=== PATIENT | male | born 1945 | race African-American/Black ===

== ENCOUNTER 2016-12-21 06:36 | Inpatient (IN) | payer MEDICARE, MEDICAID ==
[~2016-12-21] VITALS: Ht 180.3 cm; Wt 74.8 kg
[2016-12-21] VITALS (12 sets, daily range): BP systolic 123–173; BP diastolic 57–86
[~2016-12-21 06:36] MED LIST: AMLO10TA4 PO; ASPI-1159 PO; ATOR10TA PO; FERR-63 PO; FURO-151 PO; ISOS1TAB PO; METF500T4 PO; METO-298 PO; NITR0.4T3 SL; POTA20TA75 PO
[2016-12-21] MEDS ORDERED: IODIXANOL 320MG/ML 100 ML BOTTLE IV ONE (07:29)
[2016-12-21] MEDS ORDERED: LIDOCAINE HCL 1% 20ML VIAL (Pyxis) INJ ONE (07:30)
[2016-12-21] MEDS ORDERED: CLOP75TA2 PO (07:30)
[2016-12-21 07:45] LABS: HEMATOCRIT 24.3 % (42.0-52.0); HEMOGLOBIN 7.4 g/dL (14.0-18.0); MEAN CORPUSCULAR HEMOGLOBIN 20.3 pg (28.0-32.0); MEAN CORPUSCULAR VOLUME 66.6 fL (80.0-94.0); PLATELET 517 x1000/uL (130-400); RED BLOOD CELL COUNT 3.65 mill/uL (4.7-6.1); RED CELL DISTRIBUTION WIDTH 20.2 % (11.6-14.6)
[2016-12-21] MEDS ORDERED: ESOM40CA PO (07:45)
[2016-12-21] MEDS ORDERED: DOCU-138 PO (07:45)
[2016-12-21] MEDS ORDERED: SUCR1TAB30 PO (07:45)
[2016-12-21 07:54] LABS: PROTHROMBIN TIME 10.7 sec
[2016-12-21] MEDS ORDERED: HEPARIN SODIUM 1,000 UNIT/1ML VIAL IV ONE (08:25)
[2016-12-21] MEDS ORDERED: MIDAZOLAM HCL 2 MG/2 ML VIAL ONE ×2 (08:25→09:10)
[2016-12-21] MEDS ORDERED: FENTANYL CITRATE/PF 50MCG/ML 2ML VIAL ONE (08:26)
[2016-12-21] MEDS ORDERED: IOVERSOL 240MG/ML 100ML BOTTLE IV ONE (08:59)
[2016-12-21] MEDS ORDERED: ASPIRIN 325MG TABLET ONE (09:21)
[2016-12-21] MEDS ORDERED: CLOPIDOGREL 75MG TABLET ONE (09:21)
[2016-12-21] MEDS: AMLODIPINE 10MG TABLET PO SCH (10:30)
[2016-12-21] MEDS: FERROUS SULFATE 325MG TABLET PO SCH ×2 (12:45→17:20)
[2016-12-21] MEDS: SUCRALFATE 1G TABLET PO SCH ×3 (12:45→20:24)
[2016-12-21] MEDS: ISOSORB DINIT/HYDRALAZINE HCL 20/37.5MG TABLET PO SCH ×2 (12:50→17:36)
[2016-12-21] MEDS: DOCUSATE SODIUM 100MG CAPSULE PO SCH (17:00)
[2016-12-21] MEDS: FUROSEMIDE 40MG TABLET PO SCH (17:00)
[2016-12-21] MEDS: METOPROLOL TARTRATE 50MG TABLET PO SCH (20:24)
[2016-12-21] MEDS ORDERED: ATORVASTATIN CALCIUM 10MG TABLET PO SCH (21:00)
[2016-12-22] VITALS (7 sets, daily range): BP systolic 127–147; BP diastolic 66–77
[2016-12-22] MEDS: SUCRALFATE 1G TABLET PO SCH ×2 (06:22→12:38)
[2016-12-22 06:49] LABS: EOSINOPHILS % 2.2 % (0.0-5.0); HEMOGLOBIN. 7.2 g/dL (14.0-18.0); LYMPHOCYTES % 13.3 % (20.0-50.0); MEAN CORPUSCULAR HEMOGLOBIN 20.8 pg (28.0-32.0); MEAN CORPUSCULAR VOLUME 66.8 fL (80.0-94.0); MEAN PLATELET VOLUME 6.7 fl (7.4-10.4); NEUTROPHILS % 74.5 % (40.0-76.0); PLATELET 490 x1000/uL (130-400); RED BLOOD CELL COUNT 3.45 mill/uL (4.7-6.1)
[2016-12-22 07:05] LABS: CHLORIDE 107 mEq/L (98-107)
[2016-12-22 07:15] LABS: CARBON DIOXIDE 23 mEq/L (21-32)
[2016-12-22] MEDS: FERROUS SULFATE 325MG TABLET PO SCH ×2 (08:59→12:39)
[2016-12-22] MEDS: FUROSEMIDE 40MG TABLET PO SCH (09:00)
[2016-12-22] MEDS: AMLODIPINE 10MG TABLET PO SCH (09:00)
[2016-12-22] MEDS ORDERED: POTASSIUM CHLORIDE 20MEQ TABLET SR PO SCH (09:00)
[2016-12-22] MEDS: ISOSORB DINIT/HYDRALAZINE HCL 20/37.5MG TABLET PO SCH (09:00)
[2016-12-22] MEDS: METOPROLOL TARTRATE 50MG TABLET PO SCH (09:00)
[2016-12-22] MEDS ORDERED: CLOPIDOGREL 75MG TABLET PO SCH (09:00)
[2016-12-22] MEDS ORDERED: ASPIRIN 81MG EC TABLET PO SCH (09:00)
[2016-12-22] MEDS: DOCUSATE SODIUM 100MG CAPSULE PO SCH (09:00)
== END 2016-12-22 13:07 | disposition home health service (06) | DRG 254 ==
LOC: CCL 06:36 → 3WST 06:37
PROVIDERS: ADMIT Specialist; ATTEND Specialist
PROC: 047U3ZZ Dilation of Left Peroneal Artery, Percutaneous Approach (ICD-10-PCS; principal; 2016-12-21)
PROC: B41G1ZZ Fluoroscopy of Left Lower Extremity Arteries using Low Osmolar Contrast (ICD-10-PCS; 2016-12-21)
DX: E11.51 Type 2 diabetes mellitus with diabetic peripheral angiopathy without gangrene (principal); D63.8 Anemia in other chronic diseases classified elsewhere; E78.5 Hyperlipidemia, unspecified; I11.9 Hypertensive heart disease without heart failure; I25.10 Atherosclerotic heart disease of native coronary artery without angina pectoris; I70.202 Unspecified atherosclerosis of native arteries of extremities, left leg; J44.9 Chronic obstructive pulmonary disease, unspecified; F17.210 Nicotine dependence, cigarettes, uncomplicated; Z71.6 Tobacco abuse counseling; I25.2 Old myocardial infarction; I73.9 Peripheral vascular disease, unspecified
CPT/HCPCS: 36415; 37228; 75710; 80048; 82962; 85025; 85027; 85347; 85610; C1725; C1760; C1769; C1893; C1894; J1644; J2250; J3010; J3490; Q9967

== ENCOUNTER 2016-12-28 18:30 | Emergency (ER) | payer MEDICARE, MEDICAID ==
[~2016-12-28] VITALS: Ht 180.3 cm; Wt 80.0 kg
[~2016-12-28 18:30] MED LIST changes: +CLOP75TA2 PO; +DOCU-138 PO; +ESOM40CA PO; +IOHEXOL-300 100 ML BOTTLE ONE; +SODIUM CHLORIDE 0.9% 10ML VIAL ONE; +SUCR1TAB30 PO
[2016-12-28] MEDS ORDERED: ONDANSETRON HCL 4MG/2ML VIAL IV STA (22:45)
[2016-12-28] MEDS ORDERED: MORPHINE SULFATE 4 MG/ML CPJ (NOT FOR IM USE) IV STA (22:45)
[2016-12-28] MEDS ORDERED: SODIUM CHLORIDE 0.9% 1,000 ML IV ONE (22:45)
[2016-12-28 23:19] LABS: BASOPHILS % 0.6 % (0.0-2.0); EOSINOPHILS % 2.1 % (0.0-5.0); HEMATOCRIT. 22.9 % (42.0-52.0); HEMOGLOBIN. 7.1 g/dL (14.0-18.0); LYMPHOCYTES % 15.6 % (20.0-50.0); MEAN CORPUSCULAR HEMOGLOBIN 20.9 pg (28.0-32.0); MEAN CORPUSCULAR VOLUME 67.8 fL (80.0-94.0); MEAN PLATELET VOLUME 6.2 fl (7.4-10.4); NEUTROPHILS % 74.7 % (40.0-76.0); PLATELET 625 x1000/uL (130-400); RED BLOOD CELL COUNT 3.37 mill/uL (4.7-6.1); RED CELL DISTRIBUTION WIDTH 21.7 % (11.6-14.6)
[2016-12-28 23:22] LABS: INR 1.1; PARTIAL THROMBOPLASTIN TIME 27.5 sec (24.0-34.0); PROTHROMBIN TIME 11.1 sec
[2016-12-28 23:25] LABS: CARBON DIOXIDE 24 mEq/L (21-32); CHLORIDE 109 mEq/L (98-107)
[2016-12-28 23:26] LABS: PLATELET ESTIMATE MARKEDLY INCREASED
[2016-12-29 00:49] LABS: CLARITY URINE CLEAR (CLEAR); COLOR URINE YELLOW (YELLOW); GLUCOSE URINE NEGATIVE (NEGATIVE); KETONES URINE NEGATIVE (NEGATIVE); LEUKOCYTE ESTERASE URINE 2+ (NEGATIVE); NITRITE URINE NEGATIVE (NEGATIVE); OCCULT BLOOD URINE TRACE (NEGATIVE); PH URINE 6.5 (4.5-8.0); PROTEIN URINE TRACE (NEGATIVE); SPECIFIC GRAVITY URINE 1.024 (1.005-1.030)
[2016-12-29 04:06] VITALS: BP 186/86
== END 2016-12-29 04:08 | disposition home or self-care (01) ==
LOC: ER 19:04
DX: S30.1XXA Contusion of abdominal wall, initial encounter (principal); S20.219A Contusion of unspecified front wall of thorax, initial encounter; E11.9 Type 2 diabetes mellitus without complications; I10 Essential (primary) hypertension; V49.88XA Car occupant (driver) (passenger) injured in other specified transport accidents, initial encounter; Y93.89 Activity, other specified; Y92.89 Other specified places as the place of occurrence of the external cause; Y99.8 Other external cause status
CPT/HCPCS: 36415; 71010; 71260; 74177; 80048; 81001; 82962; 85025; 85610; 85730; 93005; 96361; 96374; 96375; 99291; A4216; J2270; J2405; J7030; Q9967

== ENCOUNTER 2020-08-03 17:08 | Inpatient (IN) | payer MEDICARE, MEDICAID ==
[~2020-08-03] VITALS: Ht 180.3 cm; Wt 75.3 kg
[~2020-08-03 17:08] MED LIST changes: -ASPI-1159 PO; +ASPI-1497 PO; +CLOP-31 PO; -CLOP75TA2 PO; +FAMO40TA7 PO; +FERR-43 PO; -IOHEXOL-300 100 ML BOTTLE ONE; +ISOS30TA91 PO; +METF-414 PO; -METF500T4 PO; -METO-298 PO; +METO-385 PO; -NITR0.4T3 SL; +NITR0.4T49 SL; +POTA20TA12 PO; -POTA20TA75 PO; -SODIUM CHLORIDE 0.9% 10ML VIAL ONE
[2020-08-03] MEDS ORDERED: SODIUM CHLORIDE 0.9% 1,000 ML IV ONE (18:30)
[2020-08-03 18:31] LABS: MEAN CORPUSCULAR HEMOGLOBIN 16.3 pg (28.0-32.0); MEAN CORPUSCULAR VOLUME 60.7 fL (80.0-94.0); MEAN PLATELET VOLUME 6.8 fl (7.4-10.4); PLATELET 535 x1000/uL (130-400); RED BLOOD CELL COUNT 3.05 mill/uL (4.7-6.1); RED CELL DISTRIBUTION WIDTH 24.7 % (11.6-14.6)
[2020-08-03 18:38] LABS: CHLORIDE 110 mEq/L (98-107)
[2020-08-03 18:39] LABS: HEMATOCRIT. 18.5 % (42.0-52.0)
[2020-08-03 18:43] LABS: INR 1.1; PARTIAL THROMBOPLASTIN TIME 27.9 sec (23.4-31.0)
[2020-08-03 19:26] LABS: NUCLEATED RED BLOOD CELLS 1 /100 WBC
[2020-08-03 19:27] LABS: PLATELET ESTIMATE INCREASED
[2020-08-03] MEDS ORDERED: FUROSEMIDE 40MG/4ML VIAL IVP ONE (20:45)
[2020-08-04] VITALS (8 sets, daily range): BP systolic 115–195; BP diastolic 59–96
[2020-08-04] MEDS ORDERED: DEXTROSE 50% WATER 50ML SYRINGE IV PRN (03:30)
[2020-08-04] MEDS: HYDRALAZINE 20MG/ML VIAL IV PRN ×2 (03:58→12:32)
[2020-08-04] MEDS: BLOOD SUGAR DIAGNOSTIC STRIP TEST SCH ×4 (06:45→21:15)
[2020-08-04] MEDS ORDERED: AMLODIPINE 10MG TABLET PO SCH (07:00)
[2020-08-04] MEDS: INSULIN LISPRO 100 UNITS/ML SUBCUT SCH ×4 (07:40→21:14)
[2020-08-04] MEDS ORDERED: FUROSEMIDE 20MG/2ML VIAL IV SCH (09:00)
[2020-08-04 11:06] LABS: HEMATOCRIT. 26.7 % (42.0-52.0); HEMOGLOBIN. 7.9 g/dL (14.0-18.0); MEAN CORPUSCULAR VOLUME 67.4 fL (80.0-94.0); MEAN PLATELET VOLUME 8.4 fl (7.4-10.4); PLATELET 496 x1000/uL (130-400); RED BLOOD CELL COUNT 3.96 mill/uL (4.7-6.1); RED CELL DISTRIBUTION WIDTH 30.4 % (11.6-14.6)
[2020-08-04] MEDS ORDERED: LISI-186 MT (11:13)
[2020-08-04] MEDS ORDERED: METO2.5T2 MT (11:13)
[2020-08-04 11:43] LABS: CHLORIDE 109 mEq/L (98-107)
[2020-08-04] MEDS ORDERED: LISINOPRIL 5MG TABLET PO SCH (11:45)
[2020-08-04] MEDS: ASPIRIN 81MG EC TABLET PO SCH ×2 (12:31→12:41)
[2020-08-04] MEDS: ISOSORBIDE MONONITRATE 30MG TABLET SR 24HR PO SCH (12:50)
[2020-08-04] MEDS ORDERED: METOLAZONE 2.5MG TABLET PO SCH (13:00)
[2020-08-04] MEDS: METOPROLOL TARTRATE 25MG TABLET PO SCH ×2 (14:03→21:15)
[2020-08-04] MEDS ORDERED: CLONIDINE 0.2MG TABLET PO PRN (14:15)
[2020-08-04 17:25] LABS: TOTAL IRON BINDING CAPACITY 389 ug/dL (250-450)
[2020-08-04 17:35] LABS: FOLIC ACID (FOLATE) SERUM 9.6 ng/mL (>5.38)
[2020-08-04] MEDS: ATORVASTATIN CALCIUM 10MG TABLET PO SCH (18:04)
[2020-08-04] MEDS: LOSARTAN POTASSIUM 50 MG TABLET PO SCH (18:05)
[2020-08-04] MEDS: HYDRALAZINE HCL 50MG TABLET PO SCH ×2 (18:05→21:15)
[2020-08-04] MEDS: PANTOPRAZOLE SODIUM 40 MG/VIAL IV SCH (21:15)
[2020-08-04 22:11] LABS: PLATELET ESTIMATE INCREASED
[2020-08-05] VITALS: BP 120/60
[2020-08-05 04:00] VITALS: BP 128/55
[2020-08-05] MEDS: HYDRALAZINE HCL 50MG TABLET PO SCH ×3 (05:14→21:23)
[2020-08-05] MEDS: BLOOD SUGAR DIAGNOSTIC STRIP TEST SCH ×4 (05:17→20:25)
[2020-08-05 06:34] LABS: HEMATOCRIT. 25.2 % (42.0-52.0); HEMOGLOBIN. 7.6 g/dL (14.0-18.0); MEAN CORPUSCULAR HEMOGLOBIN 20.5 pg (28.0-32.0); MEAN CORPUSCULAR VOLUME 68.2 fL (80.0-94.0); MEAN PLATELET VOLUME 8.5 fl (7.4-10.4); PLATELET 475 x1000/uL (130-400); RED BLOOD CELL COUNT 3.69 mill/uL (4.7-6.1); RED CELL DISTRIBUTION WIDTH 30.6 % (11.6-14.6)
[2020-08-05] MEDS: INSULIN LISPRO 100 UNITS/ML SUBCUT SCH ×4 (06:42→20:28)
[2020-08-05 06:45] LABS: CHLORIDE 109 mEq/L (98-107)
[2020-08-05 08:00] VITALS: BP 131/54
[2020-08-05] MEDS: PANTOPRAZOLE SODIUM 40 MG/VIAL IV SCH ×2 (08:58→20:24)
[2020-08-05] MEDS: FUROSEMIDE 40MG/4ML VIAL IV SCH (08:58)
[2020-08-05] MEDS: METOPROLOL TARTRATE 25MG TABLET PO SCH ×2 (08:59→20:54)
[2020-08-05] MEDS: POTASSIUM CHLORIDE 20MEQ TABLET SR PO SCH (08:59)
[2020-08-05] MEDS: METOLAZONE 5MG TABLET PO SCH (08:59)
[2020-08-05] MEDS: LOSARTAN POTASSIUM 50 MG TABLET PO SCH (08:59)
[2020-08-05] MEDS: AMLODIPINE 10MG TABLET PO SCH (09:00)
[2020-08-05] MEDS: ATORVASTATIN CALCIUM 10MG TABLET PO SCH (09:04)
[2020-08-05] MEDS: ISOSORBIDE MONONITRATE 30MG TABLET SR 24HR PO SCH (09:05)
[2020-08-05 12:00] VITALS: BP 124/56
[2020-08-05] MEDS ORDERED: DOCUSATE SODIUM 100MG CAPSULE PO PRN (15:30)
[2020-08-05] MEDS ORDERED: SENNOSIDES/DOCUSATE SOD 8.6/50MG TABLET PO PRN (15:30)
[2020-08-05] MEDS ORDERED: MAGNESIUM HYDROXIDE 400MG/5ML 30ML UDC PO PRN (15:30)
[2020-08-05] MEDS ORDERED: POLYETHYLENE GLYCOL 3350 (17GM) 1 DOSE PACK PO PRN (15:30)
[2020-08-05] MEDS ORDERED: BISACODYL 10MG SUPP PR PRN (15:30)
[2020-08-05 16:00] VITALS: BP 148/66
[2020-08-05 16:53] LABS: PLATELET ESTIMATE INCREASED
[2020-08-05] MEDS ORDERED: MAGNESIUM CITRATE 300ML SOLUTION PO NR (17:00)
[2020-08-05 18:35] LABS: HEMATOCRIT 27.1 % (42.0-52.0); HEMOGLOBIN 8.1 g/dL (14.0-18.0)
[2020-08-05] MEDS: IRON SUCROSE COMPLEX 100 MG/5 ML ML IV SCH (18:45)
[2020-08-05 20:00] VITALS: BP 128/74
[2020-08-05] MEDS: ACETAMINOPHEN 325MG TABLET PO PRN (20:24)
[2020-08-06] VITALS: BP 122/55
[2020-08-06 04:00] VITALS: BP 152/60
[2020-08-06 04:27] LABS: CHLORIDE 107 mEq/L (98-107)
[2020-08-06 04:48] LABS: HEMATOCRIT. 26.2 % (42.0-52.0); HEMOGLOBIN. 7.6 g/dL (14.0-18.0); MEAN CORPUSCULAR HEMOGLOBIN 19.5 pg (28.0-32.0); MEAN CORPUSCULAR VOLUME 67.6 fL (80.0-94.0); MEAN PLATELET VOLUME 8.4 fl (7.4-10.4); PLATELET 483 x1000/uL (130-400); RED BLOOD CELL COUNT 3.87 mill/uL (4.7-6.1); RED CELL DISTRIBUTION WIDTH 30.3 % (11.6-14.6)
[2020-08-06] MEDS: BLOOD SUGAR DIAGNOSTIC STRIP TEST SCH ×4 (05:40→20:38)
[2020-08-06] MEDS: HYDRALAZINE HCL 50MG TABLET PO SCH ×3 (06:37→21:59)
[2020-08-06] MEDS: INSULIN LISPRO 100 UNITS/ML SUBCUT SCH ×4 (06:37→21:00)
[2020-08-06 08:00] VITALS: BP 132/57
[2020-08-06] MEDS: METOPROLOL TARTRATE 25MG TABLET PO SCH ×2 (08:05→20:37)
[2020-08-06] MEDS: LOSARTAN POTASSIUM 50 MG TABLET PO SCH (08:05)
[2020-08-06] MEDS: PANTOPRAZOLE SODIUM 40 MG/VIAL IV SCH ×2 (08:05→20:36)
[2020-08-06] MEDS: FUROSEMIDE 40MG/4ML VIAL IV SCH ×2 (08:05→18:45)
[2020-08-06] MEDS: ISOSORBIDE MONONITRATE 30MG TABLET SR 24HR PO SCH (08:05)
[2020-08-06] MEDS: ATORVASTATIN CALCIUM 10MG TABLET PO SCH (08:05)
[2020-08-06] MEDS: AMLODIPINE 10MG TABLET PO SCH (08:05)
[2020-08-06] MEDS: POTASSIUM CHLORIDE 20MEQ TABLET SR PO SCH (08:06)
[2020-08-06] MEDS: METOLAZONE 5MG TABLET PO SCH (08:06)
[2020-08-06 12:00] VITALS: BP 115/55
[2020-08-06 13:26] LABS: *AMPHETAMINES SCREEN URINE NEGATIVE (NEGATIVE); *BARBITURATES SCREEN URINE NEGATIVE (NEGATIVE)
[2020-08-06 13:27] LABS: *BENZODIAZEPINES SCREEN URINE NEGATIVE (NEGATIVE); *COCAINE SCREEN URINE NEGATIVE (NEGATIVE); METHADONE URINE SCREEN NEGATIVE (NEGATIVE); OPIATES URINE SCREEN NEGATIVE (NEGATIVE)
[2020-08-06 13:28] LABS: CANNABINOID URINE SCREEN NEGATIVE (NEGATIVE); PHENCYCLIDINE URINE SCREEN NEGATIVE (NEGATIVE)
[2020-08-06] MEDS: ACETAMINOPHEN 325MG TABLET PO PRN ×2 (13:38→20:36)
[2020-08-06 14:40] LABS: NUCLEATED RED BLOOD CELLS 1 /100 WBC; PLATELET ESTIMATE INCREASED
[2020-08-06 16:00] VITALS: BP 105/34
[2020-08-06] MEDS: IRON SUCROSE COMPLEX 100 MG/5 ML ML IV SCH (18:45)
[2020-08-06 21:04] VITALS: BP 107/34
[2020-08-07] VITALS (7 sets, daily range): BP systolic 107–141; BP diastolic 51–61
[2020-08-07] MEDS: HYDRALAZINE HCL 50MG TABLET PO SCH (06:00)
[2020-08-07] MEDS: INSULIN LISPRO 100 UNITS/ML SUBCUT SCH ×4 (06:15→20:46)
[2020-08-07] MEDS: BLOOD SUGAR DIAGNOSTIC STRIP TEST SCH ×4 (06:15→20:46)
[2020-08-07] MEDS: FUROSEMIDE 40MG/4ML VIAL IV SCH ×2 (06:15→17:39)
[2020-08-07 07:14] LABS: HEMATOCRIT. 26.3 % (42.0-52.0); HEMOGLOBIN. 7.6 g/dL (14.0-18.0); MEAN CORPUSCULAR HEMOGLOBIN 19.8 pg (28.0-32.0); MEAN CORPUSCULAR VOLUME 68.3 fL (80.0-94.0); MEAN PLATELET VOLUME 8.4 fl (7.4-10.4); PLATELET 466 x1000/uL (130-400); RED BLOOD CELL COUNT 3.85 mill/uL (4.7-6.1); RED CELL DISTRIBUTION WIDTH 30.8 % (11.6-14.6)
[2020-08-07 07:17] LABS: CHLORIDE 106 mEq/L (98-107)
[2020-08-07] MEDS: PANTOPRAZOLE SODIUM 40 MG/VIAL IV SCH ×2 (08:36→20:47)
[2020-08-07] MEDS: POTASSIUM CHLORIDE 20MEQ TABLET SR PO SCH (08:36)
[2020-08-07] MEDS: ISOSORBIDE MONONITRATE 30MG TABLET SR 24HR PO SCH (08:36)
[2020-08-07] MEDS: ATORVASTATIN CALCIUM 10MG TABLET PO SCH (08:37)
[2020-08-07] MEDS: AMLODIPINE 10MG TABLET PO SCH (08:38)
[2020-08-07] MEDS: METOLAZONE 5MG TABLET PO SCH (08:38)
[2020-08-07] MEDS: METOPROLOL TARTRATE 25MG TABLET PO SCH ×2 (08:39→20:47)
[2020-08-07] MEDS: LOSARTAN POTASSIUM 50 MG TABLET PO SCH (08:39)
[2020-08-07] MEDS ORDERED: POTASSIUM CHLORIDE 20MEQ TABLET SR PO SCH (12:00)
[2020-08-07 13:48] LABS: NUCLEATED RED BLOOD CELLS 7 /100 WBC
[2020-08-07 13:49] LABS: PLATELET ESTIMATE INCREASED
[2020-08-07] MEDS: HYDRALAZINE HCL 100MG TABLET PO SCH ×2 (14:00→22:00)
[2020-08-07] MEDS: IRON SUCROSE COMPLEX 100 MG/5 ML ML IV SCH (17:40)
[2020-08-07] MEDS: ACETAMINOPHEN 325MG TABLET PO PRN (21:26)
[2020-08-07] MEDS ORDERED: HYDROCODONE/ACETAMINOPHEN 5/325MG TABLET PO NR (23:45)
[2020-08-08] VITALS: BP 129/57
[2020-08-08 04:00] VITALS: BP 128/79
[2020-08-08] MEDS: HYDRALAZINE HCL 100MG TABLET PO SCH ×3 (05:33→21:17)
[2020-08-08] MEDS: BLOOD SUGAR DIAGNOSTIC STRIP TEST SCH ×4 (06:18→21:55)
[2020-08-08] MEDS: FUROSEMIDE 40MG/4ML VIAL IV SCH ×2 (06:19→17:25)
[2020-08-08] MEDS: INSULIN LISPRO 100 UNITS/ML SUBCUT SCH ×4 (06:19→21:00)
[2020-08-08 06:24] LABS: INR 1.2; PROTHROMBIN TIME 12.3 sec (9.6-11.0)
[2020-08-08 06:29] LABS: CHLORIDE 106 mEq/L (98-107)
[2020-08-08 06:41] LABS: HEMATOCRIT. 25.6 % (42.0-52.0); HEMOGLOBIN. 7.5 g/dL (14.0-18.0); MEAN CORPUSCULAR HEMOGLOBIN 20.2 pg (28.0-32.0); MEAN PLATELET VOLUME 8.6 fl (7.4-10.4); PLATELET 451 x1000/uL (130-400); RED BLOOD CELL COUNT 3.71 mill/uL (4.7-6.1); RED CELL DISTRIBUTION WIDTH 31.1 % (11.6-14.6)
[2020-08-08 08:00] VITALS: BP 135/56
[2020-08-08] MEDS: METOPROLOL TARTRATE 25MG TABLET PO SCH ×2 (09:02→21:00)
[2020-08-08] MEDS: LOSARTAN POTASSIUM 50 MG TABLET PO SCH (09:02)
[2020-08-08] MEDS: AMLODIPINE 10MG TABLET PO SCH (09:02)
[2020-08-08] MEDS: POTASSIUM CHLORIDE 20MEQ TABLET SR PO SCH (09:03)
[2020-08-08] MEDS: ATORVASTATIN CALCIUM 10MG TABLET PO SCH (09:03)
[2020-08-08] MEDS: METOLAZONE 5MG TABLET PO SCH (09:03)
[2020-08-08] MEDS: PANTOPRAZOLE SODIUM 40 MG/VIAL IV SCH ×2 (09:03→21:55)
[2020-08-08] MEDS: ISOSORBIDE MONONITRATE 30MG TABLET SR 24HR PO SCH (09:05)
[2020-08-08] MEDS ORDERED: POTASSIUM CHLORIDE 20MEQ TABLET SR PO NR (11:00)
[2020-08-08 12:00] VITALS: BP 128/50
[2020-08-08] MEDS: ACETAMINOPHEN 325MG TABLET PO PRN ×2 (15:38→19:45)
[2020-08-08 16:00] VITALS: BP 119/48
[2020-08-08] MEDS: HYDROCODONE/ACETAMINOPHEN 5/325MG TABLET PO PRN (16:53)
[2020-08-08 17:13] LABS: NUCLEATED RED BLOOD CELLS 8 /100 WBC
[2020-08-08 17:15] LABS: PLATELET ESTIMATE INCREASED
[2020-08-08 20:00] VITALS: BP 106/50
[2020-08-09] VITALS: BP 144/56
[2020-08-09 04:00] VITALS: BP 145/57
[2020-08-09] MEDS: INSULIN LISPRO 100 UNITS/ML SUBCUT SCH ×4 (05:37→21:00)
[2020-08-09] MEDS: BLOOD SUGAR DIAGNOSTIC STRIP TEST SCH ×4 (05:37→21:00)
[2020-08-09 05:49] LABS: HEMATOCRIT. 26.9 % (42.0-52.0); HEMOGLOBIN. 7.8 g/dL (14.0-18.0); MEAN CORPUSCULAR HEMOGLOBIN 20.4 pg (28.0-32.0); MEAN PLATELET VOLUME 8.5 fl (7.4-10.4); PLATELET 459 x1000/uL (130-400); RED BLOOD CELL COUNT 3.85 mill/uL (4.7-6.1); RED CELL DISTRIBUTION WIDTH 31.1 % (11.6-14.6)
[2020-08-09] MEDS: HYDRALAZINE HCL 100MG TABLET PO SCH ×3 (06:00→22:26)
[2020-08-09 06:10] LABS: CHLORIDE 106 mEq/L (98-107)
[2020-08-09 06:27] LABS: INR 1.1; PROTHROMBIN TIME 12.2 sec (9.6-11.0)
[2020-08-09] MEDS: FUROSEMIDE 40MG/4ML VIAL IV SCH ×2 (06:39→17:27)
[2020-08-09 08:00] VITALS: BP 158/62
[2020-08-09] MEDS: ISOSORBIDE MONONITRATE 30MG TABLET SR 24HR PO SCH (10:19)
[2020-08-09] MEDS: PANTOPRAZOLE SODIUM 40 MG/VIAL IV SCH ×2 (10:19→22:27)
[2020-08-09] MEDS: METOLAZONE 5MG TABLET PO SCH (10:20)
[2020-08-09] MEDS: METOPROLOL TARTRATE 25MG TABLET PO SCH ×2 (10:20→22:27)
[2020-08-09] MEDS: POTASSIUM CHLORIDE 20MEQ TABLET SR PO SCH (10:20)
[2020-08-09] MEDS: LOSARTAN POTASSIUM 50 MG TABLET PO SCH (10:20)
[2020-08-09] MEDS: AMLODIPINE 10MG TABLET PO SCH (10:20)
[2020-08-09] MEDS: ATORVASTATIN CALCIUM 10MG TABLET PO SCH (10:20)
[2020-08-09 12:00] VITALS: BP 140/59
[2020-08-09 13:53] LABS: NUCLEATED RED BLOOD CELLS 5 /100 WBC; PLATELET ESTIMATE INCREASED
[2020-08-09 16:00] VITALS: BP 119/56
[2020-08-09] MEDS: HYDROCODONE/ACETAMINOPHEN 5/325MG TABLET PO PRN (18:23)
[2020-08-09 20:00] VITALS: BP 113/46
[2020-08-10] VITALS: BP 124/46
[2020-08-10 01:26] LABS: CLARITY URINE CLEAR (CLEAR); COLOR URINE YELLOW (YELLOW); KETONES URINE NEGATIVE (NEGATIVE); LEUKOCYTE ESTERASE URINE 1+ (NEGATIVE); NITRITE URINE NEGATIVE (NEGATIVE); OCCULT BLOOD URINE NEGATIVE (NEGATIVE); PROTEIN URINE NEGATIVE (NEGATIVE); SPECIFIC GRAVITY URINE 1.008 (1.005-1.030); UROBILINOGEN URINE 0.2 E.U./dL (0.2-1.0)
[2020-08-10 04:00] VITALS: BP 142/89
[2020-08-10] MEDS: INSULIN LISPRO 100 UNITS/ML SUBCUT SCH ×4 (06:16→20:01)
[2020-08-10] MEDS: BLOOD SUGAR DIAGNOSTIC STRIP TEST SCH ×4 (06:16→20:01)
[2020-08-10] MEDS: HYDRALAZINE HCL 100MG TABLET PO SCH ×3 (06:18→20:41)
[2020-08-10] MEDS: FUROSEMIDE 40MG/4ML VIAL IV SCH ×2 (06:18→18:05)
[2020-08-10 07:11] LABS: HEMATOCRIT. 26.2 % (42.0-52.0); HEMOGLOBIN. 7.6 g/dL (14.0-18.0); MEAN CORPUSCULAR HEMOGLOBIN 20.4 pg (28.0-32.0); MEAN CORPUSCULAR VOLUME 70.7 fL (80.0-94.0); MEAN PLATELET VOLUME 8.4 fl (7.4-10.4); PLATELET 393 x1000/uL (130-400); RED BLOOD CELL COUNT 3.71 mill/uL (4.7-6.1); RED CELL DISTRIBUTION WIDTH 32.2 % (11.6-14.6)
[2020-08-10 08:00] VITALS: BP 127/56
[2020-08-10 08:09] LABS: PHOSPHORUS 3.1 mg/dL (2.5-4.9)
[2020-08-10] MEDS: POTASSIUM CHLORIDE 20MEQ TABLET SR PO SCH (09:00)
[2020-08-10] MEDS: LOSARTAN POTASSIUM 50 MG TABLET PO SCH (09:00)
[2020-08-10] MEDS: ISOSORBIDE MONONITRATE 30MG TABLET SR 24HR PO SCH (09:00)
[2020-08-10] MEDS: ATORVASTATIN CALCIUM 10MG TABLET PO SCH (09:00)
[2020-08-10] MEDS: AMLODIPINE 10MG TABLET PO SCH (09:00)
[2020-08-10] MEDS: METOLAZONE 5MG TABLET PO SCH (09:00)
[2020-08-10] MEDS: METOPROLOL TARTRATE 25MG TABLET PO SCH ×2 (09:00→20:40)
[2020-08-10] MEDS: PANTOPRAZOLE SODIUM 40 MG/VIAL IV SCH (09:00)
[2020-08-10] MEDS ORDERED: PROPOFOL 200MG/20ML VIAL IV ONE (12:20)
[2020-08-10] MEDS ORDERED: MEPERIDINE HCL/PF 25MG/ML CPJ IV PRN (12:30)
[2020-08-10] MEDS ORDERED: LABETALOL 5MG/ML SYR 20 MG/4 ML SYRINGE IV PRN (12:30)
[2020-08-10] MEDS ORDERED: ONDANSETRON HCL 4MG/2ML INJ IV PRN (12:30)
[2020-08-10] MEDS ORDERED: HYDROMORPHONE HCL/PF 2MG/ML CPJ IV PRN (12:30)
[2020-08-10] MEDS ORDERED: HALOPERIDOL LACTATE 5MG/ML VIAL IM PRN ×2 (14:45→16:15)
[2020-08-10 14:46] LABS: NUCLEATED RED BLOOD CELLS 6 /100 WBC; PLATELET ESTIMATE NORMAL
[2020-08-10] MEDS: RISPERIDONE 0.5MG TABLET PO SCH (14:59)
[2020-08-10 16:00] VITALS: BP 113/50
[2020-08-10] MEDS ORDERED: HALOPERIDOL LACTATE 5MG/ML VIAL IM NR (16:30)
[2020-08-10 20:00] VITALS: BP 133/48
[2020-08-11] VITALS: BP 140/79
[2020-08-11 04:00] VITALS: BP 148/61
[2020-08-11] MEDS: HYDRALAZINE HCL 100MG TABLET PO SCH ×3 (05:44→20:04)
[2020-08-11] MEDS: INSULIN LISPRO 100 UNITS/ML SUBCUT SCH ×4 (05:47→20:04)
[2020-08-11] MEDS: BLOOD SUGAR DIAGNOSTIC STRIP TEST SCH ×4 (05:47→20:04)
[2020-08-11] MEDS: FUROSEMIDE 40MG/4ML VIAL IV SCH ×2 (05:51→17:15)
[2020-08-11 06:52] LABS: HEMATOCRIT. 29.5 % (42.0-52.0); HEMOGLOBIN. 8.7 g/dL (14.0-18.0); MEAN CORPUSCULAR HEMOGLOBIN 21.3 pg (28.0-32.0); MEAN CORPUSCULAR VOLUME 71.9 fL (80.0-94.0); MEAN PLATELET VOLUME 8.5 fl (7.4-10.4); PLATELET 414 x1000/uL (130-400); RED CELL DISTRIBUTION WIDTH 32.3 % (11.6-14.6)
[2020-08-11 07:45] LABS: PHOSPHORUS 3.2 mg/dL (2.5-4.9)
[2020-08-11 08:00] VITALS: BP 109/43
[2020-08-11 08:27] LABS: NUCLEATED RED BLOOD CELLS 1 /100 WBC
[2020-08-11 08:28] LABS: PLATELET ESTIMATE INCREASED
[2020-08-11] MEDS: METOPROLOL TARTRATE 25MG TABLET PO SCH ×2 (09:00→20:04)
[2020-08-11] MEDS: LOSARTAN POTASSIUM 50 MG TABLET PO SCH (09:00)
[2020-08-11] MEDS: AMLODIPINE 10MG TABLET PO SCH (09:00)
[2020-08-11] MEDS: ISOSORBIDE MONONITRATE 30MG TABLET SR 24HR PO SCH (09:42)
[2020-08-11] MEDS: PANTOPRAZOLE SODIUM 40 MG/VIAL IV SCH (09:42)
[2020-08-11] MEDS: RISPERIDONE 0.5MG TABLET PO SCH (09:42)
[2020-08-11] MEDS: METOLAZONE 5MG TABLET PO SCH (09:42)
[2020-08-11] MEDS: POTASSIUM CHLORIDE 20MEQ TABLET SR PO SCH (09:42)
[2020-08-11] MEDS: ATORVASTATIN CALCIUM 10MG TABLET PO SCH (09:42)
[2020-08-11 12:00] VITALS: BP 113/43
[2020-08-11 16:00] VITALS: BP 103/37
[2020-08-11 20:00] VITALS: BP 136/51
[2020-08-12] VITALS: BP 129/70
[2020-08-12 04:00] VITALS: BP 134/53
[2020-08-12] MEDS: HYDRALAZINE HCL 100MG TABLET PO SCH (05:39)
[2020-08-12] MEDS: BLOOD SUGAR DIAGNOSTIC STRIP TEST SCH ×2 (05:39→13:07)
[2020-08-12] MEDS: FUROSEMIDE 40MG/4ML VIAL IV SCH (05:39)
[2020-08-12] MEDS: INSULIN LISPRO 100 UNITS/ML SUBCUT SCH ×2 (05:53→12:40)
[2020-08-12 06:21] LABS: HEMATOCRIT. 28.1 % (42.0-52.0); HEMOGLOBIN. 8.4 g/dL (14.0-18.0); MEAN CORPUSCULAR HEMOGLOBIN 21.6 pg (28.0-32.0); MEAN CORPUSCULAR VOLUME 72.3 fL (80.0-94.0); MEAN PLATELET VOLUME 8.5 fl (7.4-10.4); PLATELET 348 x1000/uL (130-400); RED BLOOD CELL COUNT 3.88 mill/uL (4.7-6.1); RED CELL DISTRIBUTION WIDTH 33.6 % (11.6-14.6)
[2020-08-12 06:39] LABS: PHOSPHORUS 3.3 mg/dL (2.5-4.9)
[2020-08-12 08:00] VITALS: BP 129/59
[2020-08-12] MEDS: ISOSORBIDE MONONITRATE 30MG TABLET SR 24HR PO SCH ×2 (09:00→09:51)
[2020-08-12] MEDS: PANTOPRAZOLE SODIUM 40 MG/VIAL IV SCH ×2 (09:00→09:50)
[2020-08-12] MEDS: ATORVASTATIN CALCIUM 10MG TABLET PO SCH ×2 (09:00→09:51)
[2020-08-12] MEDS: METOPROLOL TARTRATE 25MG TABLET PO SCH (09:00)
[2020-08-12] MEDS: POTASSIUM CHLORIDE 20MEQ TABLET SR PO SCH ×2 (09:00→09:51)
[2020-08-12] MEDS: RISPERIDONE 0.5MG TABLET PO SCH ×2 (09:00→09:51)
[2020-08-12] MEDS: AMLODIPINE 5MG TABLET PO SCH ×2 (09:51→10:00)
[2020-08-12] MEDS ORDERED: POLYETHYLENE GLYCOL 3350 (17GM) 1 DOSE PACK PO SCH (11:30)
[2020-08-12] MEDS ORDERED: BISACODYL 10MG SUPP PR NR (11:30)
[2020-08-12 12:00] VITALS: BP 122/68
[2020-08-12] MEDS ORDERED: RISP05 PO (13:36)
[2020-08-12] MEDS ORDERED: METO25TA6 PO (13:38)
[2020-08-12] MEDS ORDERED: HYDR-4135 PO (13:44)
[2020-08-12] MEDS ORDERED: ISOS30TA91 PO (13:44)
[2020-08-12] MEDS ORDERED: PANT40TA51 MT (13:44)
[2020-08-12] MEDS ORDERED: HYDRALAZINE HCL 50MG TABLET PO SCH (14:00)
[2020-08-12 14:59] VITALS: BP 122/68
[2020-08-12 16:04] LABS: PLATELET ESTIMATE NORMAL
[2020-08-13] MEDS ORDERED: METOLAZONE 2.5MG TABLET PO SCH (09:00)
[2020-08-13] MEDS ORDERED: LOSARTAN POTASSIUM 25 MG TABLET PO SCH (09:00)
== END 2020-08-12 16:15 | disposition home health service (06) | DRG 811 ==
LOC: ER 17:08 → 8WST 20:51 → ENRESERV 21:59 → 8WST 23:34 → 7WST 08-05 23:02 → 8WST 08-06 23:51
PROVIDERS: ADMIT Internal Medicine; ATTEND Internal Medicine
PROC: 30233N1 Transfusion of Nonautologous Red Blood Cells into Peripheral Vein, Percutaneous Approach (ICD-10-PCS; 2020-08-03)
PROC: 0DB78ZX Excision of Stomach, Pylorus, Via Natural or Artificial Opening Endoscopic, Diagnostic (ICD-10-PCS; principal; 2020-08-10)
DX: D50.9 Iron deficiency anemia, unspecified (principal); U07.1 COVID-19; I50.23 Acute on chronic systolic (congestive) heart failure; G93.41 Metabolic encephalopathy; J96.91 Respiratory failure, unspecified with hypoxia; I16.1 Hypertensive emergency; E44.0 Moderate protein-calorie malnutrition; N17.9 Acute kidney failure, unspecified; J84.9 Interstitial pulmonary disease, unspecified; I11.0 Hypertensive heart disease with heart failure; E78.5 Hyperlipidemia, unspecified; F17.210 Nicotine dependence, cigarettes, uncomplicated; I25.10 Atherosclerotic heart disease of native coronary artery without angina pectoris; E78.00 Pure hypercholesterolemia, unspecified; I27.20 Pulmonary hypertension, unspecified; K29.00 Acute gastritis without bleeding; M16.0 Bilateral primary osteoarthritis of hip; M85.80 Other specified disorders of bone density and structure, unspecified site; K59.00 Constipation, unspecified; E11.51 Type 2 diabetes mellitus with diabetic peripheral angiopathy without gangrene; J44.9 Chronic obstructive pulmonary disease, unspecified; I25.2 Old myocardial infarction; Z95.5 Presence of coronary angioplasty implant and graft; Z79.02 Long term (current) use of antithrombotics/antiplatelets; Z79.4 Long term (current) use of insulin; Z79.82 Long term (current) use of aspirin; Z79.899 Other long term (current) drug therapy; Z82.3 Family history of stroke; Z82.49 Family history of ischemic heart disease and other diseases of the circulatory system; Z83.3 Family history of diabetes mellitus; Z68.23 Body mass index [BMI] 23.0-23.9, adult; R55 Syncope and collapse; M25.551 Pain in right hip
CPT/HCPCS: 36415; 71045; 71250; 72192; 73502; 74176; 76770; 76870; 80048; 80053; 80305; 81003; 82270; 82550; 82607; 82728; 82746; 82962; 83036; 83540; 83550; 83735; 83880; 84100; 84484; 85014; 85018; 85025; 85044; 86850; 86900; 86920; 87426; 88305; 88313; 93005; 93306; 93976; 97110; 97116; 97162; 97166; 97530; 97535; 99285; A6261; C1893; C9113; J0360; J1630; J1815; J1940; J2704; J7030; P9016; U0003